=== PATIENT | female | born 1960 | race Caucasian/White ===

== ENCOUNTER → 2018-09-13 | Outpatient (CLI) | payer OTHER ==
[2018-09-13 08:12] VITALS: BP 106/67; PULSE 72; TEMP 98.2; BMI 22.4
--- NOTE | 2018-09-13 08:52 | P.HPOB ---
History of Present Illness H&P Date: 09/13/18 Chief Complaint: The patient is here for her routine gynecologic exam and mammogram. This is a 57-year-old with an LMP of 2013. The patient is without gynecologic complaints and denies any postmenopausal bleeding. She has been using Premarin vaginal cream for vaginal dryness and states she is doing well with this. Review of Systems The patient's weight has been stable over the last year. She denies respiratory , cardiac, or G.I. problems. Past Medical History Past Medical History: Cancer (Squamous cell skin cancer on the lower eyelid in 2014.), Skin Disorder Additional Past Medical History / Comment(s): HX HYPOGLCEMIA History of Any Multi-Drug Resistant Organisms: None Reported Past Surgical History: Tubal Ligation Additional Past Surgical History / Comment(s): Skin CA removal from eyelid. COLONOSCOPY 2015(2nd)-rec. to rpt 5yrs. 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 - Past Family History Father Family Medical History: Cancer (Skin cancer), Diabetes Mellitus Additional Family Medical History / Comment(s): Heart valve problems. Paternal aunt had colon cancer. Grandmother had pancreatic cancer. Brother(s) Family Medical History: Diabetes Mellitus Medications and Allergies Home Medications Medication Instructions Recorded Confirmed Type Estrogens, Conjugated Cream 1 applicator VAGINAL DIRECTED 09/13/18 09/13/18 History [Premarin Cream] Allergies Allergy/AdvReac Type Severity Reaction Status Date / Time codeine AdvReac Nausea & Verified 09/13/18 08:12 Vomiting Iodinated Contrast- Oral and AdvReac SNEEZING Verified 09/13/18 08:12 IV Dye [Iodinated Contrast Media - IV Dye] Exam Vital Signs Temp Pulse BP 09/13/18 08:03 98.2 F 72 106/67 Intake and Output 09/12/18 09/13/18 09/13/18 22:59 06:59 14:59 Other: Weight 59.421 kg Height 5'4", weight 131 pounds, BMI 22.5. This is a well-developed well-nourished white female who is alert and oriented times 3 in no acute distress. HEENT: Within normal limits. NECK: Supple without mass or thyromegaly. CHEST AND LUNGS: Clear to auscultation. HEART: Regular rate and rhythm. BREASTS: Are without mass or discharge. AXILLARY EXAM: Negative for adenopathy. BACK: Negative for CVA tenderness. ABDOMEN: Soft, nontender, without palpable masses. PELVIC EXAM: Normal external genitalia with mild atrophy. Cervix and vagina appear normal mild atrophy. There is no unusual discharge. There is no evidence of prolapse. The uterus is midposition, nongravid size and nontender. There are no palpable adnexal masses or tenderness. RECTAL EXAM: rectovaginal exam is negative for mass or tenderness and is negative for occult blood. EXTREMITIES: Nontender. IMPRESSION: 1. 57-year-old menopausal female with normal gynecologic exam doing well with Premarin vaginal cream used for dryness. PLAN: 1. Pap smear was deferred since she had a normal one less than 2 years ago. 2. Self breast awareness was discussed with the patient. 3. Screening mammogram will be done today. 4. Osteoporosis prevention was discussed. I have stressed the importance of adequate calcium, vitamin D and regular exercise. Recommended amounts of calcium and vitamin D were also discussed. 5. Continue Premarin vaginal cream as directed. The electronic prescription will be sent to the [facility] pharmacy. 6. She will return in one year.
--- NOTE | 2018-09-14 08:55 | MM ---
Reason for exam: screening (asymptomatic). Last mammogram was performed 1 year ago. History: Patient is postmenopausal and history of other cancer. Took hormonal contraceptives for 10 years beginning at age 17. Physical Findings: A clinical breast exam by your physician is recommended on an annual basis and results should be correlated with mammographic findings. MG 3D Screening Mammo W/Cad Bilateral CC and MLO view(s) were taken. Prior study comparison: September 20, 2017, right breast MG 3d work up w/cad RT. September 14, 2017, bilateral MG 3d screening mammo w/cad. The breast tissue is extremely dense which could obscure a lesion on mammography. Finding: There are diffuse/scattered calcifications in both breasts, greater in the right breast. There is no discrete abnormality. ASSESSMENT: Benign, BI-RAD 2 RECOMMENDATION: Routine screening mammogram of both breasts in 1 year.
== END ==
LOC: WWCWWP 07:52
PROVIDERS: ATTEND Obstetrics & Gynecology
DX: Z12.31 Encounter for screening mammogram for malignant neoplasm of breast (principal)
CPT/HCPCS: 77063; 77067

== ENCOUNTER → 2019-09-18 | Outpatient (CLI) | payer OTHER ==
[2019-09-18 08:04] VITALS: BP 119/74; PULSE 66; RESP 16; TEMP 98.1
--- NOTE | 2019-09-18 08:38 | P.HPOB ---
History of Present Illness H&P Date: 09/18/19 Chief Complaint: The patient is here for her routine gynecologic exam and ma mmogram. this is a 58-year-old with an LMP of 2013. The patient is without gynecologic complaints and denies any postmenopausal bleeding. She is sexually active and uses Premarin vaginal cream for vaginal dryness and states she is doing well with this. Review of Systems The patient has lost 6 pounds over the last year. respiratory: She states she has had a slight dry cough during the past 2 days and thinks it might because of dry air. She denies cardiac or G.I. problems. Past Medical History Past Medical History: Cancer, Skin Disorder Additional Past Medical History / Comment(s): Squamous cell skin cancer on the lower eyelid 2014. HX HYPOGLCEMIA. 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 She had cautery of the cervix many years ago. History of Any Multi-Drug Resistant Organisms: None Reported Past Surgical History: Tubal Ligation Additional Past Surgical History / Comment(s): Skin CA removal from eyelid. COLONOSCOPY 2015(2nd)-rec. to rpt 5yrs. Past Anesthesia/Blood Transfusion Reactions: Motion Sickness, Postoperative Nausea & Vomiting (PONV) Past Psychological History: No Psychological Hx Reported Smoking Status: Former smoker Past Alcohol Use History: Occasional (2-3 per week.) Additional Past Alcohol Use History / Comment(s): Quit smoking in 1997. 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 - Past Family History Brother(s) Family Medical History: Diabetes Mellitus Father Family Medical History: Cancer, Diabetes Mellitus Additional Family Medical History / Comment(s): skin cancer. Heart valve problems. Paternal aunt had colon cancer. Grandmother had pancreatic cancer. Medications and Allergies Home Medications Medication Instructions Recorded Confirmed Type Estrogens, Conjugated Cream 1 applicator VAGINAL DIRECTED 09/27/18 09/18/19 Rx [Premarin Cream] #1 tube Allergies Allergy/AdvReac Type Severity Reaction Status Date / Time codeine AdvReac Nausea & Verified 09/18/19 08:05 Vomiting Iodinated Contrast Media AdvReac SNEEZING Verified 09/18/19 08:05 [Iodinated Contrast Media - IV Dye] Exam Vital Signs Temp Pulse Resp BP Pulse Ox 09/18/19 08:01 98.1 F 66 16 119/74 98 Intake and Output 09/17/19 09/18/19 09/18/19 22:59 06:59 14:59 Other: Weight 56.699 kg height 5 feet 4 inches, weight 125 pounds, BMI 21.5. This is a well-developed well-nourished White female who is alert and oriented times 3 in no acute distress. HEENT: Within normal limits. NECK: Supple without mass or thyromegaly. CHEST AND LUNGS: Clear to auscultation. HEART: Regular rate and rhythm. BREASTS: Are without mass or discharge. AXILLARY EXAM: Negative for adenopathy. BACK: Negative for CVA tenderness. ABDOMEN: Soft, nontender, without palpable masses. PELVIC EXAM: Normal external genitalia with mild atrophy. Cervix and vagina appear normal with mild atrophy. There is no unusual discharge. There is no evidence of prolapse. The uterus is midposition, nongravid size and nontender. There are no palpable adnexal masses or tenderness. RECTAL EXAM: rectovaginal exam is negative for mass or tenderness and is negative for occult blood. EXTREMITIES: Nontender. IMPRESSION: 1. 58-year-old menopausal female with normal gynecologic exam. 2. doing well with Premarin vaginal cream for genital atrophy and vaginal dryness. PLAN: 1. Pap smear was performed. 2. Self breast awareness was discussed with the patient. 3. screening mammogram will be done today. 4. Osteoporosis prevention was discussed. I have stressed the importance of adequate calcium, vitamin D and regular exercise. Recommended amounts of calcium and vitamin D were also discussed. We will plan doing a baseline bone density test at age 59. 5. continue using that Premarin vaginal estrogen cream. the electronic prescription will be sent to [facility] pharmacy at the [facility]. 6. She was advised to return in one year for her annual well woman exam.
--- NOTE | 2019-09-19 13:21 | MM ---
Reason for exam: screening (asymptomatic). Last mammogram was performed 1 year ago. History: Patient is postmenopausal and history of other cancer. Took hormonal contraceptives for 10 years beginning at age 17. Physical Findings: A clinical breast exam by your physician is recommended on an annual basis and results should be correlated with mammographic findings. MG 3D Screening Mammo W/Cad Bilateral CC and MLO view(s) were taken. Prior study comparison: September 13, 2018, bilateral MG 3d screening mammo w/cad. September 20, 2017, right breast MG 3d work up w/cad RT. The breast tissue is heterogeneously dense. This may lower the sensitivity of mammography. Benign appearing bilateral calcifications. No suspicious abnormality on the left breast. Right upper central, far posterior depth architectural distortion that is subtle on CC 3D 35/69 and MLO 38/69, 8-10cm from nipple. ASSESSMENT: Incomplete: need additional imaging evaluation, BI-RAD 0 RECOMMENDATION: Special view mammogram of the right breast. If lesion persists on supplemental views, image directed ultrasound is recommended. [facility] will attempt to contact patient to return for supplemental views and ultrasound if indicated.
== END | disposition home or self-care (01) ==
LOC: WWCWWP 07:51
PROVIDERS: ATTEND Obstetrics & Gynecology
DX: Z12.31 Encounter for screening mammogram for malignant neoplasm of breast (principal)
CPT/HCPCS: 77063; 77067

== ENCOUNTER → 2019-10-12 | Outpatient (CLI) | payer OTHER ==
--- NOTE | 2019-10-12 11:31 | MM ---
Reason for exam: additional evaluation requested from prior study. Last mammogram was performed 1 month ago. History: Patient is postmenopausal and history of other cancer. Took hormonal contraceptives for 10 years beginning at age 17. Physical Findings: Nurse did not find any significant physical abnormalities on exam. MG 3D Work Up W/Cad RT CC and MLO view(s) were taken of the right breast. Prior study comparison: September 18, 2019, bilateral MG 3d screening mammo w/cad. September 13, 2018, bilateral MG 3d screening mammo w/cad. The breast tissue is extremely dense which could obscure a lesion on mammography. There are benign appearing round linear calcifications in the right breast. Asymmetric breast tissue right upper outer quadrant, stable. No distinct new lesion persists at area of concern right upper outer quadrant. These results were verbally communicated with the patient and result sheet given to the patient on 10/12/19. ASSESSMENT: Negative, BI-RAD 1 RECOMMENDATION: Return to routine screening mammogram schedule for both breasts.
== END | disposition home or self-care (01) ==
LOC: RADMAMWWP 10:22
PROVIDERS: ATTEND Obstetrics & Gynecology
DX: R92.8 Other abnormal and inconclusive findings on diagnostic imaging of breast (principal)
CPT/HCPCS: 77061; 77065

== ENCOUNTER → 2019-12-14 | Outpatient (CLI) | payer OTHER ==
--- NOTE | 2019-12-14 14:29 | US ---
EXAMINATION TYPE: US bladder DATE OF EXAM: 12/14/2019 COMPARISON: NONE CLINICAL HISTORY: R33.9 retention of urine, unspecified. Urine retention. EXAM MEASUREMENTS: Post Void Residual Volume: 8.8 mL Color Doppler performed to assess ureteral jets. Bilateral Jets seen: Yes Normal Post Void Residual (less than 50ml): Yes IMPRESSION: The post void residual of the urinary bladder is within normal limits and less than 50 m L. Urinary bladder is anechoic and unremarkable.
--- NOTE | 2019-12-14 16:03 | FL ---
EXAMINATION TYPE: FL cystogram DATE OF EXAM: 12/14/2019 COMPARISON: Urinary bladder ultrasound of the same date HISTORY: Urinary bladder retention. TECHNIQUE/FINDINGS:The study was explained to the patient and history was elicited. A urinary bladder catheter was placed under sterile technique by the department of radiology nursing staff and 300 ccs of Cystografin were instilled via the urinary catheter under intermittent spot fluoroscopy. The robert ent was premedicated due to iodine allergy. 1 minute and 20 seconds of fluoroscopy was utilized with 43 fluoroscopic images saved. FINDINGS: During instillation of contrast into the urinary bladder a small focal outpouching is seen of the rig ht lateral posterior urinary bladder appearing subcentimeter. There is slightly increased in size thr oughout the examination as well as on post void images. After the urinary bladder was completely dist ended, oblique, lateral and frontal radiographs were obtained. The remainder of the bladder wall dem onstrates a smooth contour. No abnormal extrinsic impression or contrast extravasation. There was no visualized evidence of vesiculo-ureteral reflux. No post void residual contrast visualized. There is no evidence of extravasation of contrast outside the bowel lumen visualized on the post void fluor oscopic images. The visualized portion of the urethra appears unremarkable on voiding images. IMPRESSION: 1. Small right lateral posterior urinary bladder diverticulum. 2. No post void residual nor vesicoureteral reflux.
== END | disposition home or self-care (01) ==
LOC: RADUSWWP 13:27
PROVIDERS: ATTEND Family Medicine
DX: N32.3 Diverticulum of bladder (principal); R33.9 Retention of urine, unspecified
CPT/HCPCS: 74430; 76857

== ENCOUNTER → 2020-11-19 | Outpatient (CLI) | payer OTHER ==
[2020-11-19 08:03] VITALS: BP 148/64; PULSE 72; RESP 18; TEMP 98.1
--- NOTE | 2020-11-19 08:46 | P.HPOB ---
History of Present Illness H&P Date: 11/19/20 Chief Complaint: The patient is here for her routine gynecologic exam and ma mmogram. This is a 60-year-old with an LMP of 2013. The patient is without gynecologic complaints. She continues to use Premarin vaginal cream for vaginal dryness associated with sexual activity and states she is doing well with this. Review of Systems The patient has gained 11 pounds over the last year. She denies respiratory, cardiac, or G.I. problems. She denies any cardiac palpitations. Past Medical History Past Medical History: Cancer, Skin Disorder Additional Past Medical History / Comment(s): Squamous cell skin cancer on the lower eyelid 2014. HX HYPOGLCEMIA. 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 She had cautery of the cervix many years ago. History of Any Multi-Drug Resistant Organisms: None Reported Past Surgical History: Tubal Ligation Additional Past Surgical History / Comment(s): Skin CA removal from eyelid. COLONOSCOPY 2015(2nd)-rec. to rpt 5yrs. Past Anesthesia/Blood Transfusion Reactions: Motion Sickness, Postoperative Nausea & Vomiting (PONV) Past Psychological History: No Psychological Hx Reported Smoking Status: Former smoker Past Alcohol Use History: Occasional (2 per week) Additional Past Alcohol Use History / Comment(s): Quit smoking in 1997. 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 - Past Family History Brother(s) Family Medical History: Diabetes Mellitus Father Family Medical History: Cancer, Diabetes Mellitus Additional Family Medical History / Comment(s): skin cancer. Heart valve problems. Paternal aunt had colon cancer. Grandmother had pancreatic cancer. Medications and Allergies Home Medications Medication Instructions Recorded Confirmed Type Estrogens, Conjugated Cream 1 gram VAGINAL DIRECTED #1 tube 09/18/19 11/19/20 Rx [Premarin Cream] Cholecalciferol [Vitamin D3 (25 25 mcg PO DAILY 11/19/20 11/19/20 History Mcg = 1000 Iu)] Phytonadione [Vitamin K] 5 mg PO DAILY 11/19/20 11/19/20 History Zinc 50 mg PO DAILY 11/19/20 11/19/20 History Allergies Allergy/AdvReac Type Severity Reaction Status Date / Time codeine AdvReac Nausea & Verified 11/19/20 07:58 Vomiting Iodinated Contrast Media AdvReac SNEEZING Verified 11/19/20 07:58 [Iodinated Contrast Media - IV Dye] Exam Vital Signs Temp Pulse Resp BP Pulse Ox 11/19/20 08:00 98.1 F 72 18 148/64 98 Intake and Output 11/18/20 11/19/20 11/19/20 22:59 06:59 14:59 Other: Weight 61.689 kg Height 5 feet 4 inches, weight 136 pounds, BMI 23.3. This is a well-developed well-nourished white female who is alert and oriented times 3 in no acute distress. HEENT: Within normal limits. NECK: Supple without mass or thyromegaly. CHEST AND LUNGS: Clear to auscultation. HEART: Regular rate. There are occasional premature contractions within mostly regular beats. Approximately 3 premature contractions were auscultated in a 30 second period BREASTS: Are without mass or discharge. AXILLARY EXAM: Negative for adenopathy. BACK: Negative for CVA tenderness. ABDOMEN: Soft, nontender, without palpable masses. PELVIC EXAM: Normal external genitalia with mild atrophy. Cervix and vagina appear normal with mild atrophy. There is no unusual discharge. There is no evidence of prolapse. The uterus is midposition, nongravid size and nontender. There are no palpable adnexal masses or tenderness. RECTAL EXAM: Rectovaginal exam is negative for mass or tenderness and is negative for occult blood. EXTREMITIES: Nontender. IMPRESSION: 1. 60-year-old menopausal female with normal gynecologic exam. 2. Occasional premature cardiac beats which is asymptomatic. 3. Mildly elevated blood pressure. 4. Previous Pap smear on 09/18/2019 showed ASCUS with negative high-risk HPV testing. PLAN: 1. Pap smear was deferred. With the above prior Pap smear findings, we will plan on repeating after approximately 2-3 years. 2. Self breast awareness was discussed with the patient. 3. Screening mammogram will be done today. 4. Osteoporosis prevention was discussed. I have stressed the importance of adequate calcium, vitamin D and regular exercise. Recommended amounts of calcium and vitamin D were also discussed. Baseline bone density testing will be done today. 5. I have recommended a 12-lead EKG which she will have done today. The order slip was given to the patient for this. She will follow up with her PCP for possible cardiac arrhythmia evaluation. 6. We have discussed her mildly elevated blood pressure. She does have a blood pressure cuff at home and I have recommended that she check it on a regular basis. She is to follow up with her PCP for blood pressure elevations. 7. She believes she may be due for colonoscopy. I have recommended that she also follow up with her PCP for this so they can make a referral. 8. Continue Premarin vaginal cream use. The electronic prescription will be sent to [facility] pharmacy in [place]. 9. She was advised to return in one year for her annual well woman exam.
--- NOTE | 2020-11-19 10:26 | P.PN ---
Progress Note - Text Progress Note Date: 11/19/20 OUTPATIENT FOLLOW-UP NOTE TEST(S)/RESULTS: 12-lead EKG done today is within normal limits (unconfirmed) METHOD OF NOTIFICATION: A message with this result was left on the patient's voicemail. PATIENT COMMENTS: DIAGNOSIS: Premature cardiac beats on auscultation during routine examination with normal EKG. DISCUSSION: No premature beats were noted on EKG, however with 3 premature beats noted with auscultation and a 30 second period earlier today, I am recommending that she follow up with her PCP for reevaluation and possible further workup. A copy of the EKG along with my H&P from today will be sent to Dr. Johnson, her PCP. PLAN: As above.
--- NOTE | 2020-11-19 15:49 | BD ---
EXAMINATION TYPE: Axial Bone Density DATE OF EXAM: 11/19/2020 COMPARISON: NONE CLINICAL HISTORY: Height: 63.2 IN Weight: 133 LBS FRAX RISK QUESTIONS: Family History (Parent hip fracture): YES FATHER RISK FACTORS HISTORY OF: Family History of Osteoporosis: YES MOTHER Active: YES Postmenopausal woman: AGE 53 MEDICATIONS: Additional Medications: VIT D, EXAM MEASUREMENTS: Bone mineral densitometry was performed using the [employer] System. Bone mineral density as measured about the Lumbar spine is: ----- L1-L4(G/cm2): 1.333 T Score Values are as follows: ----- L2: 0.8 ----- L3: 1.4 ----- L4: 1.8 ----- L1-L4: 1.3 Bone mineral density BASELINE Bone mineral density about the R hip (g/cm2): 0.958 Bone mineral density about the L hip (g/cm2): 0.957 T Score values are as follows: -----R Neck: -0.6 -----L Neck: -0.6 -----R Total: -0.6 -----L Total: -0.2 Bone mineral density BASELINE IMPRESSION: No evidence for osteopenia or osteoporosis. NOTE: T-SCORE=SD OF THE YOUNG ADULT MEAN.
--- NOTE | 2020-11-20 11:46 | MM ---
Reason for exam: screening (asymptomatic). Last mammogram was performed 1 year and 1 month ago. History: Patient is postmenopausal and history of other cancer. Took hormonal contraceptives for 10 years beginning at age 17. Physical Findings: A clinical breast exam by your physician is recommended on an annual basis and results should be correlated with mammographic findings. MG 3D Screening Mammo W/Cad Bilateral CC and MLO view(s) were taken. Prior study comparison: October 12, 2019, right breast MG 3d work up w/cad RT. September 18, 2019, bilateral MG 3d screening mammo w/cad. The breast tissue is extremely dense which could obscure a lesion on mammography. Stable benign calcifications. There is no discrete abnormality. No significant changes when compared with prior studies. ASSESSMENT: Benign, BI-RAD 2 RECOMMENDATION: Routine screening mammogram of both breasts in 1 year.
== END | disposition home or self-care (01) ==
LOC: WWCWWP 07:48
PROVIDERS: ATTEND Obstetrics & Gynecology
DX: Z12.31 Encounter for screening mammogram for malignant neoplasm of breast (principal); Z78.0 Asymptomatic menopausal state; I49.9 Cardiac arrhythmia, unspecified
CPT/HCPCS: 77063; 77067; 77080; 93005

== ENCOUNTER 2021-08-21 07:00 | Day surgery (SDC) | payer OTHER ==
[2021-08-19 11:21] VITALS: BMI 22.3
[~2021-08-21 07:00] MED LIST: LACTATED RINGERS 1,000 ML IV SCH
[2021-08-21] MEDS ORDERED: LIDOCAINE 1% (10MG/ML) FOR IV START INTRADERMA ONE (07:35)
[2021-08-21 07:39] VITALS: RESP 16; TEMP 98.4
[2021-08-21] MEDS ORDERED: PROPOFOL 10 MG/ML 20 ML VIAL IV ONE (07:45)
[2021-08-21 07:47] LABS: Glucose,Whole Blood 70 mg/dL (75-99)
--- NOTE | 2021-08-21 08:00 | P.PCN ---
Date of Procedure: 08/21/21 Procedure(s) Performed: BRIEF HISTORY: Patient is a 60-year-old pleasant white female scheduled for an elective colonoscopy as a part of screening for colorectal neoplasia and family history of colon cancer. PROCEDURE PERFORMED: Colonoscopy with snare polypectomy PREOPERATIVE DIAGNOSIS: Screening for colon cancer/family history of colon cancer. IV sedation per Anesthesia. PROCEDURE: After informed consent was obtained, the patient, was brought into the endoscopy unit. IV sedation was administered by Anesthesia under continuous monitoring. Digital rectal examination was normal. Initially the Olympus CF-160 flexible video colonoscope was inserted in the rectum, gradually advanced into the cecum without any difficulty. Careful examination was performed as the scope was gradually being withdrawn. Ileocecal valve and the appendiceal orifice were visualized and appeared normal. Prep was excellent. Mucosa of the cecum, ascending colon, transverse colon, descending colon, appeared normal. In the distal sigmoid: There was a 6-7 mm polyp that was removed by snare polypectomy. Rest of the sigmoid colon, and rectum appeared normal. The mid rectum there was a 3 mm polyp that was removed by snare polypectomy Retroflexion was performed in the rectum and no lesions were seen. The patient tolerated the procedure well. IMPRESSION: 5-6 mm distal sigmoid colon polyp status post polypectomy 3 mm rectal polyp status post polypectomy RECOMMENDATIONS: Findings of this examination were discussed with the patient family.. she was advised to follow with the biopsy results. If the biopsy reveals adenoma she can have a repeat colonoscopy in 5 years
[2021-08-21 08:18] VITALS: BP 103/63; PULSE 59
== END 2021-08-21 08:35 | disposition home or self-care (01) ==
LOC: ORWHC2ENDO 07:00
PROVIDERS: ATTEND Internal Medicine Gastroenterology
DX: Z12.11 Encounter for screening for malignant neoplasm of colon (principal); K63.5 Polyp of colon; K62.1 Rectal polyp; Z80.0 Family history of malignant neoplasm of digestive organs; Z88.5 Allergy status to narcotic agent; Z91.041 Radiographic dye allergy status
CPT/HCPCS: 88305; 45385; J2704

== ENCOUNTER 2021-10-16 06:52 | Emergency (ER) | payer OTHER ==
[2021-10-16 07:00] VITALS: TEMP 99.2
[2021-10-16] MEDS ORDERED: diphenhydrAMINE 50 MG/ML 1 ML VIAL IVP STA (07:02)
[2021-10-16] MEDS ORDERED: KETOROLAC 15 MG/ML 1 ML VIAL IVP STA (07:02)
[2021-10-16] MEDS ORDERED: ONDANSETRON 4 MG/2 ML VIAL IVP STA (07:02)
[2021-10-16] MEDS ORDERED: SODIUM CHLORIDE 0.9% 1,000 ML IV STA (07:02)
[2021-10-16 07:51] LABS: Basophils % (A) 1 %; Eosinophils # (A) 0.1 k/uL (0-0.7); Eosinophils % (A) 3 %; HCT 40.8 % (34.0-46.0); HGB 13.7 gm/dL (11.4-16.0); Lymphocytes # (A) 1.3 k/uL (1.0-4.8); Lymphocytes % (A) 36 %; MCH 30.5 pg (25.0-35.0); MCHC 33.5 g/dL (31.0-37.0); MCV 91.2 fL (80.0-100.0); Mean Platelet Volume 6.8; Monocytes # (A) 0.5 k/uL (0-1.0); Monocytes % (A) 12 %; Neutrophils # (A) 1.7 k/uL (1.3-7.7); Neutrophils % (A) 46 %; Platelet Count 177 k/uL (150-450); RBC 4.48 m/uL (3.80-5.40); RDW 12.6 % (11.5-15.5); WBC 3.7 k/uL (3.8-10.6)
[2021-10-16 07:56] LABS: Prothrombin Time 11.1 sec (9.0-12.0)
[2021-10-16 08:03] VITALS: RESP 16
[2021-10-16 08:06] LABS: ALT 34 U/L (4-34); AST 33 U/L (14-36); African American GFR (CKD) >90 (>60 ml/min/1.73 sqM); Albumin 4.3 g/dL (3.5-5.0); Alkaline Phosphatase 115 U/L (38-126); Anion Gap 8 mmol/L; Blood Urea Nitrogen 14 mg/dL (7-17); C Reactive Protein 0.9 mg/dL (<1.0); Calcium 9.3 mg/dL (8.4-10.2); Carbon Dioxide 25 mmol/L (22-30); Chloride 106 mmol/L (98-107); Glucose 82 mg/dL (74-99); LDH 530 U/L (313-618); Magnesium 1.9 mg/dL (1.6-2.3); Non-African American GFR(CKD) 81 (>60 ml/min/1.73 sqM); Sodium 139 mmol/L (137-145); Total Bilirubin 0.6 mg/dL (0.2-1.3); Total Protein 7.2 g/dL (6.3-8.2)
--- NOTE | 2021-10-16 08:24 | XR ---
EXAMINATION TYPE: XR chest 1V portable DATE OF EXAM: 10/16/2021 Comparison: 05/12/2016 Clinical History: 61-year-old female cough, Suspected COVID-19 pneumonia Findings: Heart normal size. Aorta and pulmonary vasculature within normal limits. Mild interstitial prominence without consolidation or pleural effusion. Impression: Mild interstitial prominence may reflect subtle underlying groundglass COVID infiltrates. No sheeba ai rspace disease seen.
--- NOTE | 2021-10-16 08:30 | ED ---
Headache HPI - General Chief Complaint: Headache Stated Complaint: Cough,Headache Time Seen by Provider: 10/16/21 07:01 Source: patient, RN notes reviewed Mode of arrival: ambulatory Limitations: no limitations - History of Present Illness Initial Comments: Patient is a 61-year-old female that presents to the emergency department complaining of a cough congestion and headache for the past 2 days. She notes she doesn't at home Covid test last night which was negative. Patient comes to the emergency room to get evaluated. She notes she is fully vaccinated for Covid and has no significant past medical history including cardiac history or respiratory issues. She'll the last well-appearing in good spirits. She denied chest pain shortness of breath nausea vomiting diarrhea constipation fever fatigue chills. - Related Data Home Medications Medication Instructions Recorded Confirmed No Known Home Medications 08/04/21 08/21/21 Allergies Allergy/AdvReac Type Severity Reaction Status Date / Time codeine AdvReac Nausea & Verified 10/16/21 07:00 Vomiting Iodinated Contrast Media AdvReac SNEEZING Verified 10/16/21 07:00 [Iodinated Contrast Media - IV Dye] Review of Systems ROS Statement: Those systems with pertinent positive or pertinent negative responses have been documented in the HPI. ROS Other: All systems not noted in ROS Statement are negative. Past Medical History Past Medical History: Cancer Additional Past Medical History / Comment(s): Hx Squamous cell skin cancer on the lower eyelid 2014. HX HYPOGLCEMIA. History of Any Multi-Drug Resistant Organisms: None Reported Past Surgical History: Tubal Ligation Additional Past Surgical History / Comment(s): Skin cancer removal from eyelid. COLONOSCOPY. Past Anesthesia/Blood Transfusion Reactions: No Reported Reaction, Motion Sickness, Postoperative Nausea & Vomiting (PONV) Past Psychological History: No Psychological Hx Reported Smoking Status: Former smoker Past Alcohol Use History: None Reported Past Drug Use History: None Reported - Past Family History Brother(s) Family Medical History: Diabetes Mellitus Father Family Medical History: Cancer, Diabetes Mellitus Additional Family Medical History / Comment(s): skin cancer. Heart valve problems. Paternal aunt had colon cancer. Grandmother had pancreatic cancer. General Exam Limitations: no limitations General appearance: alert, in no apparent distress Head exam: Present: atraumatic, normocephalic, normal inspection Eye exam: Present: normal appearance, PERRL, EOMI. Absent: scleral icterus, conjunctival injection, periorbital swelling ENT exam: Present: normal exam, mucous membranes moist Neck exam: Present: normal inspection Respiratory exam: Present: normal lung sounds bilaterally. Absent: respiratory distress, wheezes, rales, rhonchi, stridor Cardiovascular Exam: Present: regular rate, normal rhythm, normal heart sounds. Absent: systolic murmur, diastolic murmur, rubs, gallop, clicks GI/Abdominal exam: Present: soft, normal bowel sounds. Absent: distended, tenderness, guarding, rebound, rigid Extremities exam: Present: normal inspection, full ROM, normal capillary refill. Absent: tenderness, pedal edema, joint swelling, calf tenderness Neurological exam: Present: alert, oriented X3 Psychiatric exam: Present: normal affect, normal mood Skin exam: Present: warm, dry, intact, normal color. Absent: rash Course Vital Signs 10/16/21 10/16/21 06:55 08:01 Temperature 99.2 F Pulse Rate 86 Respiratory 22 16 Rate Blood Pressure 126/64 O2 Sat by Pulse 96 Oximetry Medical Decision Making - Medical Decision Making 61-year-old female complaining of headache off congestion and mild chest burning and epigastric region. Labs, Covid test, 1 L normal saline, 50 mg Benadryl, 15 mg of Toradol, 4 mg Zofran ordered. Labs are unremarkable and within normal limits, positive Covid test. Patient does not meet criteria for monoclonal antibodies. She is agreeable with discharge home with conservative management. Case discussed with Dr. Rios. - Lab Data Result diagrams: 10/16/21 07:39 10/16/21 07:39 Lab Results 10/16/21 10/16/21 10/16/21 Range/Units 07:39 07:39 07:39 WBC 3.7 L (3.8-10.6) k/uL RBC 4.48 (3.80-5.40) m/uL Hgb 13.7 (11.4-16.0) gm/dL Hct 40.8 (34.0-46.0) % MCV 91.2 (80.0-100.0) fL MCH 30.5 (25.0-35.0) pg MCHC 33.5 (31.0-37.0) g/dL RDW 12.6 (11.5-15.5) % Plt Count 177 (150-450) k/uL MPV 6.8 Neutrophils % 46 % Lymphocytes % 36 % Monocytes % 12 % Eosinophils % 3 % Basophils % 1 % Neutrophils # 1.7 (1.3-7.7) k/uL Lymphocytes # 1.3 (1.0-4.8) k/uL Monocytes # 0.5 (0-1.0) k/uL Eosinophils # 0.1 (0-0.7) k/uL Basophils # 0.0 (0-0.2) k/uL PT 11.1 (9.0-12.0) sec INR 1.0 (<1.2) Sodium (137-145) mmol/L Potassium (3.5-5.1) mmol/L Chloride (98-107) mmol/L Carbon Dioxide (22-30) mmol/L Anion Gap mmol/L BUN (7-17) mg/dL Creatinine (0.52-1.04) mg/dL Est GFR (CKD-EPI)AfAm (>60 ml/min/1.73 sqM) Est GFR (CKD-EPI)NonAf (>60 ml/min/1.73 sqM) Glucose (74-99) mg/dL Plasma Lactic Acid Amanuel (0.7-2.0) mmol/L Calcium (8.4-10.2) mg/dL Magnesium (1.6-2.3) mg/dL Total Bilirubin (0.2-1.3) mg/dL AST (14-36) U/L ALT (4-34) U/L Alkaline Phosphatase (38-126) U/L Lactate Dehydrogenase (313-618) U/L C-Reactive Protein (<1.0) mg/dL Total Protein (6.3-8.2) g/dL Albumin (3.5-5.0) g/dL Coronavirus (PCR) Detected A (Not Detectd) Influenza Type A RNA (Not Detectd) Influenza Type B (PCR) (Not Detectd) 10/16/21 10/16/21 10/16/21 Range/Units 07:39 07:39 07:39 WBC (3.8-10.6) k/uL RBC (3.80-5.40) m/uL Hgb (11.4-16.0) gm/dL Hct (34.0-46.0) % MCV (80.0-100.0) fL MCH (25.0-35.0) pg MCHC (31.0-37.0) g/dL RDW (11.5-15.5) % Plt Count (150-450) k/uL MPV Neutrophils % % Lymphocytes % % Monocytes % % Eosinophils % % Basophils % % Neutrophils # (1.3-7.7) k/uL Lymphocytes # (1.0-4.8) k/uL Monocytes # (0-1.0) k/uL Eosinophils # (0-0.7) k/uL Basophils # (0-0.2) k/uL PT (9.0-12.0) sec INR (<1.2) Sodium 139 (137-145) mmol/L Potassium 4.0 (3.5-5.1) mmol/L Chloride 106 (98-107) mmol/L Carbon Dioxide 25 (22-30) mmol/L Anion Gap 8 mmol/L BUN 14 (7-17) mg/dL Creatinine 0.79 (0.52-1.04) mg/dL Est GFR (CKD-EPI)AfAm >90 (>60 ml/min/1.73 sqM) Est GFR (CKD-EPI)NonAf 81 (>60 ml/min/1.73 sqM) Glucose 82 (74-99) mg/dL Plasma Lactic Acid Amanuel 0.7 (0.7-2.0) mmol/L Calcium 9.3 (8.4-10.2) mg/dL Magnesium 1.9 (1.6-2.3) mg/dL Total Bilirubin 0.6 (0.2-1.3) mg/dL AST 33 (14-36) U/L ALT 34 (4-34) U/L Alkaline Phosphatase 115 (38-126) U/L Lactate Dehydrogenase 530 (313-618) U/L C-Reactive Protein 0.9 (<1.0) mg/dL Total Protein 7.2 (6.3-8.2) g/dL Albumin 4.3 (3.5-5.0) g/dL Coronavirus (PCR) (Not Detectd) Influenza Type A RNA Not Detected (Not Detectd) Influenza Type B (PCR) Not Detected (Not Detectd) - EKG Data -: EKG Interpreted by [place] EKG shows normal: sinus rhythm Rate: normal EKG Comments: Ventricular rate 80 bpm, MI interval 160 ms, QRS duration 70 ms, QTC 449 ms, normal sinus rhythm, nonspecific ST abnormality, abnormal ECG. - Radiology Data Radiology results: report reviewed, image reviewed Chest x-ray: Mild interstitial prominence may reflect subtle underlying groundglass Covid infiltrates. Disposition Clinical Impression: COVID Disposition: HOME SELF-CARE Condition: Stable Instructions (If sedation given, give patient instructions): Coronavirus Disease 2019 (COVID-19) Additional Instructions: Please return to the Emergency Department if symptoms worsen or any other concerns. Follow-up with primary care 1-2 days. Quarantine per CDC guidelines. Alternate Tylenol Motrin as needed for aches pains or fevers. Is patient prescribed a controlled substance at d/c from ED?: No Referrals: Ramez Johnson DO [Primary Care Provider] - 1-2 days Time of Disposition: 08:29
[2021-10-16 08:49] VITALS: BP 127/66; PULSE 66
== END 2021-10-16 08:49 | disposition home or self-care (01) ==
LOC: EC 06:52
DX: U07.1 COVID-19 (principal); Z87.891 Personal history of nicotine dependence; Z88.5 Allergy status to narcotic agent; Z91.041 Radiographic dye allergy status
CPT/HCPCS: 36415; 93005; 80053; 83605; 83615; 83735; 84484; 85025; 85610; 86140; 87502; 84145; 87635; 71045; 99284; 96374; 96375; 96361; J1200; J2405; J1885

== ENCOUNTER → 2021-12-22 | Outpatient (CLI) | payer OTHER ==
[2021-12-22 08:01] VITALS: BP 129/73; PULSE 64; RESP 17; TEMP 98.1
--- NOTE | 2021-12-22 08:46 | P.HPOB ---
History of Present Illness H&P Date: 12/22/21 Chief Complaint: The patient is here for her routine gynecologic exam and ma mmogram. This is a 61-year-old with an LMP of 2013. The patient is without gynecologic complaints and denies any post menopausal bleeding. Review of Systems The patient has lost 4 pounds over the last year. She denies respiratory, cardiac, or G.I. problems. Past Medical History Past Medical History: Cancer Additional Past Medical History / Comment(s): Hx Squamous cell skin cancer on the lower eyelid 2014. HX HYPOGLCEMIA. 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 She had cautery of the cervix many years ago. History of Any Multi-Drug Resistant Organisms: None Reported Past Surgical History: Tubal Ligation Additional Past Surgical History / Comment(s): Skin cancer removal from eyelid. COLONOSCOPY 2020(next after 5yr). Past Anesthesia/Blood Transfusion Reactions: No Reported Reaction, Motion Sickness, Postoperative Nausea & Vomiting (PONV) Past Psychological History: No Psychological Hx Reported Smoking Status: Never smoker Past Alcohol Use History: Occasional (2 per week) Additional Past Alcohol Use History / Comment(s): Quit smoking in 1997. 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 - Past Family History Brother(s) Family Medical History: Diabetes Mellitus Father Family Medical History: Cancer, Diabetes Mellitus Additional Family Medical History / Comment(s): skin cancer. Heart valve problems. Paternal aunt had colon cancer. Grandmother had pancreatic cancer. Medications and Allergies Home Medications Medication Instructions Recorded Confirmed Type Cholecalciferol [Vitamin D3 (25 25 mg PO DAILY 12/22/21 12/22/21 History Mcg = 1000 Iu)] Allergies Allergy/AdvReac Type Severity Reaction Status Date / Time codeine AdvReac Nausea & Verified 12/22/21 07:57 Vomiting Iodinated Contrast Media AdvReac SNEEZING Verified 12/22/21 07:57 [Iodinated Contrast Media - IV Dye] Exam Vital Signs Temp Pulse Resp BP Pulse Ox 12/22/21 07:59 98.1 F 64 17 129/73 98 Intake and Output 12/21/21 12/22/21 12/22/21 22:59 06:59 14:59 Other: Weight 59.874 kg Height 5 feet 4 inches, weight 132 pounds, BMI 22.7. This is a well-developed well-nourished white female who is alert and oriented times 3 in no acute distress. HEENT: Within normal limits. NECK: Supple without mass or thyromegaly. CHEST AND LUNGS: Clear to auscultation. HEART: Regular rate and rhythm. BREASTS: Are without mass or discharge. AXILLARY EXAM: Negative for adenopathy. BACK: Negative for CVA tenderness. ABDOMEN: Soft, nontender, without palpable masses. PELVIC EXAM: Normal external genitalia with mild atrophy. Cervix and vagina appear normal with mild atrophy. The cervix is somewhat stenotic secondary to atrophy. There is no unusual discharge. There is no evidence of prolapse. The uterus is midposition, nongravid size and nontender. There are no palpable adnexal masses or tenderness. RECTAL EXAM: Rectovaginal exam is negative for mass or tenderness and is negative for occult blood. EXTREMITIES: Nontender. IMPRESSION: 1. 61-year-old menopausal female with normal gynecologic exam. 2. Previous ASCUS Pap smear with negative high-risk HPV testing on 09/18/2019. PLAN: 1. Pap smear: Test was performed. 2. Self breast awareness was discussed with the patient. We have also discussed symptoms associated with inflammatory breast cancer. 3. Screening mammogram will be done today. 4. Osteoporosis prevention was discussed. I have stressed the importance of adequate calcium, vitamin D and regular exercise. She had a normal bone density test done last year. This will be repeated about 5 years after her last testing. 5. She has received Covid vaccination series. 6. She was advised to return in one year for her annual well woman exam.
--- NOTE | 2021-12-23 08:30 | MM ---
Reason for exam: screening (asymptomatic). Last mammogram was performed 1 year and 1 month ago. History: Patient is postmenopausal and history of other cancer. Took hormonal contraceptives for 10 years beginning at age 17. Physical Findings: A clinical breast exam by your physician is recommended on an annual basis and results should be correlated with mammographic findings. MG 3D Screening Mammo W/Cad Bilateral CC and MLO view(s) were taken. Prior study comparison: November 19, 2020, bilateral MG 3d screening mammo w/cad. October 12, 2019, right breast MG 3d work up w/cad RT. The breast tissue is extremely dense which could obscure a lesion on mammography. There are benign appearing round calcifications bilaterally. There is no discrete abnormality. ASSESSMENT: Benign, BI-RAD 2 RECOMMENDATION: Routine screening mammogram of both breasts in 1 year.
== END ==
LOC: WWCWWP 07:48
PROVIDERS: ATTEND Obstetrics & Gynecology
DX: Z01.419 Encounter for gynecological examination (general) (routine) without abnormal findings (principal); Z12.31 Encounter for screening mammogram for malignant neoplasm of breast; Z78.0 Asymptomatic menopausal state; Z80.0 Family history of malignant neoplasm of digestive organs; Z88.5 Allergy status to narcotic agent; Z91.041 Radiographic dye allergy status; Z87.891 Personal history of nicotine dependence
CPT/HCPCS: 77063; 77067

== ENCOUNTER → 2022-12-28 | Outpatient (CLI) | payer BC ==
[2022-12-28 07:55] VITALS: BP 128/73; PULSE 72; RESP 16; TEMP 97.5
--- NOTE | 2022-12-28 08:35 | P.HPOB ---
History of Present Illness H&P Date: 12/28/22 Chief Complaint: The patient is here for her routine gynecologic exam and ma mmogram. This is a 62-year-old with an LMP of 2013. The patient was using Premarin vaginal cream for vaginal dryness and dyspareunia. She states the last couple times she used it, it seemed to irritate the genital area and she discontinued it. She states she has not been having issues with sexual activity after discontinuing it. She is otherwise without gynecologic complaints. Review of Systems The patient's weight has been stable over the last year. She denies respiratory, cardiac, or G.I. problems. Past Medical History Past Medical History: Cancer, Hyperlipidemia Additional Past Medical History / Comment(s): Hx Squamous cell skin cancer on the lower eyelid 2014. HX HYPOGLCEMIA. 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 She had cautery of the cervix around 1992. History of Any Multi-Drug Resistant Organisms: None Reported Past Surgical History: Tubal Ligation Additional Past Surgical History / Comment(s): Skin cancer removal from eyelid. COLONOSCOPY 2020(next after 5yr). Past Anesthesia/Blood Transfusion Reactions: No Reported Reaction, Motion Sickness, Postoperative Nausea & Vomiting (PONV) Past Psychological History: No Psychological Hx Reported Smoking Status: Never smoker Past Alcohol Use History: Occasional (2 per week) Additional Past Alcohol Use History / Comment(s): Quit smoking in 1997. 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 - Past Family History Brother(s) Family Medical History: Diabetes Mellitus Father Family Medical History: Cancer, Diabetes Mellitus Additional Family Medical History / Comment(s): skin cancer. Heart valve problems. Paternal aunt had colon cancer. Grandmother had pancreatic cancer. Medications and Allergies Home Medications Medication Instructions Recorded Confirmed Type Cholecalciferol [Vitamin D3 (25 25 mg PO DAILY 12/22/21 12/28/22 History Mcg = 1000 Iu)] Simvastatin 40 mg PO DAILY 12/28/22 12/28/22 History Allergies Allergy/AdvReac Type Severity Reaction Status Date / Time codeine AdvReac Nausea & Verified 12/28/22 07:51 Vomiting Iodinated Contrast Media AdvReac SNEEZING Verified 12/28/22 07:51 [Iodinated Contrast Media - IV Dye] Exam Vital Signs Temp Pulse Resp BP Pulse Ox 12/28/22 07:53 97.5 F L 72 16 128/73 99 Intake and Output 12/27/22 12/28/22 12/28/22 22:59 06:59 14:59 Other: Weight 59.421 kg Height 5 feet 3 inches, weight 131 pounds, BMI 23.2. This is a well-developed well-nourished white female who is alert and oriented times 3 in no acute distress. HEENT: Within normal limits. NECK: Supple without mass or thyromegaly. CHEST AND LUNGS: Clear to auscultation. HEART: Regular rate and rhythm. BREASTS: Are without mass or discharge. AXILLARY EXAM: Negative for adenopathy. BACK: Negative for CVA tenderness. ABDOMEN: Soft, nontender, without palpable masses. PELVIC EXAM: Normal external genitalia with mild to moderate atrophy. Cervix and vagina appear normal with mild to moderate atrophy. The cervix appears nulliparous without lesions. There is no unusual discharge. There is no evidence of prolapse. The uterus is midposition, nongravid size and nontender. There are no palpable adnexal masses or tenderness. RECTAL EXAM: Rectovaginal exam is negative for mass or tenderness and is negative for occult blood. EXTREMITIES: Nontender. IMPRESSION: 1. 62-year-old menopausal female with normal gynecologic exam. 2. Previous ASCUS Pap smear with negative high-risk HPV testing on 09/18/2019. The next Pap smear cotest on 12/22/2021 was negative. PLAN: 1. We will plan on repeating the Pap smear cotest in approximately 3-4 years and at that time we will consider discontinuing Pap smears. The patient has indicated that since she has had some type of cervical problems requiring cauterization 30 years ago, that she may want to continue cervical screening after her next screening. 2. Self breast awareness was discussed with the patient. We have also discussed symptoms associated with inflammatory breast cancer. 3. Screening mammogram will be done today. 4. Osteoporosis prevention was discussed. I have stressed the importance of adequate calcium, vitamin D and regular exercise. Recommended amounts of calcium and vitamin D were also discussed. She had a normal bone density test done in 2020. We will repeated again after 5 years. 5. Since she has some irritation with Premarin vaginal cream, she would like to try Estrace vaginal cream. She will use 1 g into the vagina 2 times weekly. The electronic prescription will be sent to [facility] pharmacy. She will call if problems. 6. She was advised to return in one year for her annual well woman exam.
--- NOTE | 2022-12-29 09:47 | MM ---
Reason for Exam: Screening (asymptomatic). Last screening mammogram was performed 12 month(s) ago. Patient History: Menarche at age 13. First Full-Term at age 16. Postmenopausal. Other cancer. Hormonal Contraceptives for 10 years from age 17 until age 37. Risk Values: Jenn 5 year model risk: 1.0%. NCI Lifetime model risk: 4.4%. Prior Study Comparison: 10/12/2019 Right Diagnostic Mammogram, [facility]. 11/19/2020 Bilateral Screening Mammogram, [facility]. 12/22/2021 Bilateral Screening Mammogram, [facility]. Tissue Density: The breast tissue is heterogeneously dense. This may lower the sensitivity of mammography. Findings: Analyzed By CAD. Benign-appearing calcifications. There is no suspicious group of microcalcifications or new suspicious mass in either breast. Overall Assessment: Benign, BI-RAD 2 Management: Screening Mammogram of both breasts in 1 year. A clinical breast exam by your physician is recommended on an annual basis and results should be correlated with mammographic findings. [facility] will attempt to contact patient to return for supplemental views and ultrasound if indicated. Electronically signed and approved by: Grant High DO
== END ==
LOC: WWCWWP 07:44
PROVIDERS: ATTEND Obstetrics & Gynecology
DX: Z12.31 Encounter for screening mammogram for malignant neoplasm of breast (principal); Z01.419 Encounter for gynecological examination (general) (routine) without abnormal findings; Z88.5 Allergy status to narcotic agent; Z83.3 Family history of diabetes mellitus; Z80.0 Family history of malignant neoplasm of digestive organs; Z79.899 Other long term (current) drug therapy; E78.5 Hyperlipidemia, unspecified; Z91.041 Radiographic dye allergy status; Z87.891 Personal history of nicotine dependence
CPT/HCPCS: 77063; 77067

== ENCOUNTER → 2024-01-10 | Outpatient (CLI) | payer BC ==
[2024-01-10 08:25] VITALS: BP 143/86; PULSE 63; RESP 17; TEMP 97.8
--- NOTE | 2024-01-10 08:32 | P.HPOB ---
History of Present Illness H&P Date: 01/10/24 Chief Complaint: The patient is here for her routine gynecologic exam and ma mmogram. This is a 63-year-old with an LMP of 2013. Patient is without gynecologic complaints. She has not been using the Premarin vaginal cream and states she has not had any problems with vaginal dryness. Review of Systems The patient's weight has been stable over the last year. She denies respiratory, cardiac, or G.I. problems. Past Medical History Past Medical History: Cancer, Hyperlipidemia Additional Past Medical History / Comment(s): Hx Squamous cell skin cancer on the lower eyelid 2014. HX HYPOGLCEMIA. 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 She had cautery of the cervix around 1992. History of Any Multi-Drug Resistant Organisms: None Reported Past Surgical History: Tubal Ligation Additional Past Surgical History / Comment(s): Skin cancer removal from eyelid. COLONOSCOPY 2020(next after 5yr). Past Anesthesia/Blood Transfusion Reactions: No Reported Reaction, Motion Sickness, Postoperative Nausea & Vomiting (PONV) Past Psychological History: No Psychological Hx Reported Smoking Status: Never smoker Past Alcohol Use History: Occasional (2-3 drinks per week.) Additional Past Alcohol Use History / Comment(s): Quit smoking in 1997. 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 - Past Family History Brother(s) Family Medical History: Diabetes Mellitus Father Family Medical History: Cancer, Diabetes Mellitus Additional Family Medical History / Comment(s): skin cancer. Heart valve problems. Paternal aunt had colon cancer. Grandmother had pancreatic cancer. Medications and Allergies Home Medications Medication Instructions Recorded Confirmed Type Simvastatin 40 mg PO DAILY 12/28/22 01/10/24 History Ubidecarenone [Co Q-10] 1 cap PO DAILY 01/10/24 01/10/24 History Allergies Allergy/AdvReac Type Severity Reaction Status Date / Time codeine AdvReac Nausea & Verified 01/10/24 07:59 Vomiting Iodinated Contrast Media AdvReac SNEEZING Verified 01/10/24 07:59 [Iodinated Contrast Media - IV Dye] Exam Vital Signs Temp Pulse Resp BP Pulse Ox 01/10/24 08:01 97.8 F 63 17 143/86 98 Intake and Output 01/09/24 01/10/24 01/10/24 22:59 06:59 14:59 Other: Weight 58.967 kg Height 5 feet 3 inches, weight 130 pounds, BMI 23.0. This is a well-developed well-nourished white female who is alert and oriented times 3 in no acute distress. HEENT: Within normal limits. NECK: Supple without mass or thyromegaly. CHEST AND LUNGS: Clear to auscultation. HEART: Regular rate and rhythm. BREASTS: Are without mass or discharge. AXILLARY EXAM: Negative for adenopathy. BACK: Negative for CVA tenderness. ABDOMEN: Soft, nontender, without palpable masses. PELVIC EXAM: Normal external genitalia with mild atrophy. Cervix and vagina appear normal mild atrophy. There is no unusual discharge. There is no evidence of prolapse. The uterus is midposition, nongravid size and nontender. There are no palpable adnexal masses or tenderness. RECTAL EXAM: Rectovaginal exam is negative for mass or tenderness and is negative for occult blood. EXTREMITIES: Nontender. IMPRESSION: 1. 63-year-old menopausal female with normal gynecologic exam. 2. Elevated blood pressure. PLAN: 1. Pap smear was deferred since she had a negative Pap smear cotest on 12/22/2021. We will plan on repeating the Pap smear cotest after 4 to 5 years from her last one and if this is negative we will plan on discontinuing Pap smears at that time. 2. Self breast awareness was discussed with the patient. We have also discussed symptoms associated with inflammatory breast cancer. 3. Screening mammogram will be done today. 4. Her blood pressure was discussed. I recommended that she check her own blood pressure on a regular basis since she does have a blood pressure cuff. She will follow-up with her PCP for blood pressure elevations. 5. Osteoporosis prevention was discussed. I have stressed the importance of adequate calcium, vitamin D and regular exercise. Recommended amounts of calcium and vitamin D were also discussed. She had a normal bone density test on 11/19/2020 and we will repeat it after about 5 years. 6. She was advised to return in one year for her annual well woman exam.
--- NOTE | 2024-01-11 15:16 | MM ---
Reason for Exam: Screening (asymptomatic). Last mammogram was performed 1 year(s) and 1 month(s) ago. Patient History: Menarche at age 13. First Full-Term at age 16. Postmenopausal. Other cancer. Hormonal Contraceptives for 10 years from age 17 until age 37. Risk Values: Jenn 5 year model risk: 1.1%. NCI Lifetime model risk: 4.3%. Prior Study Comparison: 11/19/2020 Bilateral Screening Mammogram, [facility]. 12/22/2021 Bilateral Screening Mammogram, [facility]. 12/28/2022 Bilateral MG 3D screening mammo w/cad, [facility]. Tissue Density: There are scattered areas of fibroglandular density. Findings: Analyzed By CAD. There is no suspicious group of microcalcifications or new suspicious mass in either breast. Overall Assessment: Benign, BI-RAD 2 Management: Screening Mammogram of both breasts in 1 year. . Patient should continue monthly self-breast exams. A clinical breast exam by your physician is recommended on an annual basis. This exam should not preclude additional follow-up of suspicious palpable abnormalities. Note on Jenn scores and lifetime risk: 1. A Jenn score greater than 3% is considered moderate risk. If this is the case, consider specialist referral to assess eligibility for a risk reducing agent. 2. If overall lifetime risk for the development of breast cancer is 20% or higher, the patient may qualify for future screening with alternating mammogram and breast MRI. Electronically signed and approved by: Tarik Montoya M.D. [facility]
== END ==
LOC: WWCWWP 07:51
PROVIDERS: ATTEND Obstetrics & Gynecology
DX: Z12.31 Encounter for screening mammogram for malignant neoplasm of breast (principal); Z78.0 Asymptomatic menopausal state; I10 Essential (primary) hypertension; Z88.1 Allergy status to other antibiotic agents; Z88.5 Allergy status to narcotic agent; Z87.891 Personal history of nicotine dependence
CPT/HCPCS: 77063; 77067